=== PATIENT | male | born 1955 | race Caucasian/White ===

== ENCOUNTER → 2021-07-24 | Day surgery (SDC) | payer OTHER ==
[~2021-07-24] VITALS: Ht 172.7 cm; Wt 77.1 kg
[~2021-07-24] MED LIST: NORCO 5-325 TA1 EACH PO; ONDANSETRON ODT8 MG PO; PRILOSEC20 MG PO
[2021-07-24 10:23] LABS: HGB 13.8 g/dl (13.2-18.0); MCH 31.2 pg (25.0-31.0); MCHC 33.7 g/dL (32.0-36.0); MCV 92.6 fL (78.0-100.0); MPV 9.8 fL (6.0-9.5); RBC 4.43 M/uL (4.70-6.00); RDW 13.5 % (11.5-14.0); WBC 4.2 K/uL (4.0-10.5)
[2021-07-24 11:00] LABS: ALBUMIN 3.7 g/dL (3.4-5.0); BILIRUBIN - TOTAL 0.4 mg/dL (0.2-1.0); BUN/CREAT RATIO (CALC) 21.4 RATIO; CREATININE 0.84 mg/dL (0.67-1.17); GLOBULIN (CALCULATION) 3.6 g/dL; POTASSIUM 4.9 mmol/L (3.5-5.1); TOTAL PROTEIN 7.3 g/dL (6.4-8.2)
== END | disposition home or self-care (01) ==
LOC: FAS 09:14
PROVIDERS: Surgery
DX: C44.622 Squamous cell carcinoma of skin of right upper limb, including shoulder (principal)
CPT/HCPCS: 36415; 80053; J2250; J2405; J2704; J2710; J3010; J7120